=== PATIENT | female | born 1955 | race Caucasian/White ===

== ENCOUNTER → 2017-08-23 | Outpatient (CLI) | payer BC ==
[~2017-08-23] MED LIST: ACET325 PO; ALLO100 PO; ASHWAGANDHA PO; ASPI81CH PO; CHLORELLA PO; CHOL10002 PO; CYAN500 PO; ELIQUIS5 MG PO; KETO10 PO; LOSA50 PO; Milk Thistle150 MG PO; NEBI5 PO; PANT20 PO; PRED1 PO; PROBIOTIC1 EAC1 PO; Pravachol40 MG PO; TOCO1000 PO; TURMERIC500 M2 PO; UBID100 PO; Xopenex Hfa15 GM INH
== END | disposition home or self-care (01) ==
LOC: PLD → LAB SHORT
DX: D22.62 Melanocytic nevi of left upper limb, including shoulder (principal)
CPT/HCPCS: 88305

== ENCOUNTER 2018-05-23 19:42 | Emergency (ER) | payer BC ==
[~2018-05-23] VITALS: Ht 170.2 cm; Wt 140.6 kg
[~2018-05-23 19:42] MED LIST changes: -ACET325 PO; -ASHWAGANDHA PO; -CHLORELLA PO; -CHOL10002 PO; -CYAN500 PO; -ELIQUIS5 MG PO; -KETO10 PO; -Milk Thistle150 MG PO; -PANT20 PO; -PROBIOTIC1 EAC1 PO; -TOCO1000 PO; -TURMERIC500 M2 PO; -UBID100 PO; -Xopenex Hfa15 GM INH
[2018-05-23 20:05] LABS: BASOPHILS ABSOLUTE AUTO 0.04 K/mm3 (0.00-0.23); BASOPHILS PERCENT AUTO 1 % (0-2); EOSINOPHILS ABSOLUTE AUTO 0.03 K/mm3 (0.00-0.68); EOSINOPHILS PERCENT AUTO 0 % (0-6); Hematocrit 40.7 % (33.0-51.0); Hemoglobin 13.5 g/dL (11.5-16.0); IMMATURE GRAN ABSOLUTE AUTO 0.01 K/mm3 (0.00-0.10); IMMATURE GRAN PERCENT AUTO 0 % (0-1); LYMPHOCYTES ABSOLUTE AUTO 1.07 K/mm3 (0.84-5.20); LYMPHOCYTES PERCENT AUTO 14 % (21-46); MONOCYTES ABSOLUTE AUTO 0.61 K/mm3 (0.16-1.47); MONOCYTES PERCENT AUTO 8 % (4-13); Mean Corpuscular HGB 32.9 pg (26.0-34.0); Mean Corpuscular HGB Conc 33.2 g/dL (31.5-36.5); Mean Corpuscular Volume 99 fL (80-100); Mean Platelet Volume 10.1 fL (9.1-12.4); NEUTROPHILS ABSOLUTE AUTO 5.72 K/mm3 (1.96-9.15); NEUTROPHILS PERCENT AUTO 77 % (41-73); Platelet Count 162 K/mm3 (150-400); RDW Coefficient Variation 13.3 % (11.7-14.2); RDW Standard Deviation 48.1 fL (35.1-46.3); White Blood Cell Count 7.48 K/mm3 (4.00-11.30)
[2018-05-23 20:27] LABS: Alanine Aminotransfer (ALT/SGP 31 U/L (12-78); Albumin/Globulin Ratio 1.1 (0.8-1.8); Alk Phos 105 U/L (50-136); Anion Gap 11 mmol/L (6-16); Aspartate Aminotrans (AST/SGOT 26 U/L (12-37); Bilirubin, Total 0.6 mg/dL (0.1-1.0); Blood Urea Nitrogen 10 mg/dL (8-24); Bun/Creatinine Ratio 13.3 (12.0-20.0); CO2, Blood 24 mmol/L (21-32); Calcium, Blood 9.3 mg/dL (8.5-10.1); Chloride, Blood 104 mmol/L (98-108); Creatinine, Blood 0.75 mg/dL (0.40-1.00); Globulin, Blood 3.6 g/dL (2.2-4.0); Glomerular Filtration Rate >60 (60-); Glucose, Blood 107 mg/dL (70-99); Potassium, Blood 4.1 mmol/L (3.5-5.5); Sodium, Blood 139 mmol/L (136-145); Total Protein, Blood 7.6 g/dL (6.4-8.2); Troponin I <0.015 ng/mL (0.000-0.040)
[2018-05-24] MEDS ORDERED: KETO10 PO (00:47)
[2018-05-24] MEDS ORDERED: Milk Thistle150 MG PO (13:57)
[2018-05-24] MEDS ORDERED: UBID100 PO (14:26)
[2018-05-24] MEDS ORDERED: TURMERIC500 M2 PO (14:27)
[2018-05-24] MEDS ORDERED: TOCO1000 PO (14:28)
[2018-05-24] MEDS ORDERED: PROBIOTIC1 EAC1 PO (14:29)
[2018-05-24] MEDS ORDERED: ASHWAGANDHA PO (14:30)
[2018-05-24] MEDS ORDERED: CHLORELLA PO (14:31)
[2018-05-24] MEDS ORDERED: CYAN500 PO (14:32)
[2018-05-24] MEDS ORDERED: CHOL10002 PO (14:33)
[2018-05-25] MEDS ORDERED: PANT20 PO (15:37)
[2018-05-25] MEDS ORDERED: ACET325 PO (15:37)
[2018-05-25] MEDS ORDERED: ELIQUIS5 MG PO (15:51)
== END 2018-05-24 01:18 | disposition home or self-care (01) ==
LOC: ER 19:42
PROVIDERS: Emergency Medicine
DX: R07.2 Precordial pain (principal); R10.13 Epigastric pain; I48.91 Unspecified atrial fibrillation; Z87.891 Personal history of nicotine dependence; Z88.0 Allergy status to penicillin; Z79.899 Other long term (current) drug therapy; Z79.82 Long term (current) use of aspirin
CPT/HCPCS: 36415; 71046; 71260; 80053; 84484; 85025; 85379; 93005; 93010; 96374; 99284-25; J1885; Q9967

== ENCOUNTER 2019-02-24 05:08 | Inpatient (IN) | payer BC ==
[~2019-02-24] VITALS: Ht 172.7 cm; Wt 139.1 kg
[~2019-02-24 05:08] MED LIST changes: +ACET325 PO; +ASHWAGANDHA PO; +CHLORELLA PO; +CHOL10002 PO; +CYAN500 PO; +ELIQUIS5 MG PO; +KETO10 PO; +Milk Thistle150 MG PO; +PANT20 PO; +PROBIOTIC1 EAC1 PO; +TOCO1000 PO; +TURMERIC500 M2 PO; +UBID100 PO; +Xopenex Hfa15 GM INH
[2019-02-24 05:41] LABS: BASOPHILS ABSOLUTE AUTO 0.07 K/mm3 (0.00-0.23); BASOPHILS PERCENT AUTO 1 % (0-2); EOSINOPHILS ABSOLUTE AUTO 0.08 K/mm3 (0.00-0.68); EOSINOPHILS PERCENT AUTO 1 % (0-6); Hematocrit 48.4 % (33.0-51.0); Hemoglobin 15.8 g/dL (11.5-16.0); IMMATURE GRAN ABSOLUTE AUTO 0.04 K/mm3 (0.00-0.10); IMMATURE GRAN PERCENT AUTO 0 % (0-1); LYMPHOCYTES ABSOLUTE AUTO 1.99 K/mm3 (0.84-5.20); LYMPHOCYTES PERCENT AUTO 17 % (21-46); MONOCYTES ABSOLUTE AUTO 0.87 K/mm3 (0.16-1.47); MONOCYTES PERCENT AUTO 8 % (4-13); Mean Corpuscular HGB 31.6 pg (26.0-34.0); Mean Corpuscular HGB Conc 32.6 g/dL (31.5-36.5); Mean Corpuscular Volume 97 fL (80-100); Mean Platelet Volume 10.2 fL (9.1-12.4); NEUTROPHILS ABSOLUTE AUTO 8.41 K/mm3 (1.96-9.15); NEUTROPHILS PERCENT AUTO 73 % (41-73); Platelet Count 241 K/mm3 (150-400); RDW Coefficient Variation 14.3 % (11.7-14.2); White Blood Cell Count 11.46 K/mm3 (4.00-11.30)
[2019-02-24 06:06] LABS: Alanine Aminotransfer (ALT/SGP 24 U/L (12-78); Alk Phos 91 U/L (50-136); Anion Gap 11 mmol/L (6-16); Aspartate Aminotrans (AST/SGOT 29 U/L (12-37); Bilirubin, Total 0.4 mg/dL (0.1-1.0); Blood Urea Nitrogen 13 mg/dL (8-24); Bun/Creatinine Ratio 17.3 (12.0-20.0); CO2, Blood 25 mmol/L (21-32); Calcium, Blood 9.6 mg/dL (8.5-10.1); Chloride, Blood 104 mmol/L (98-108); Creatinine, Blood 0.75 mg/dL (0.40-1.00); Globulin, Blood 3.9 g/dL (2.2-4.0); Glomerular Filtration Rate >60 (60-); Glucose, Blood 124 mg/dL (70-99); Potassium, Blood 4.4 mmol/L (3.5-5.5); Sodium, Blood 140 mmol/L (136-145); Total Protein, Blood 7.9 g/dL (6.4-8.2)
[2019-02-24 08:14] LABS: International Normalized Ratio 0.99; Prothrombin Time Results 10.5 Sec (9.7-11.5)
[2019-02-24] MEDS ORDERED: DIGOX125 MCG PO (08:48)
[2019-02-24] MEDS ORDERED: Hydrocodone-Ap1 EA23 PO (08:50)
[2019-02-24] MEDS ORDERED: PRED1 PO (12:39)
[2019-02-24] MEDS ORDERED: MITIGARE0.6 MG PO (12:40)
--- NOTE | 2019-02-24 15:00 | NUR ---
PT TO DAY SURGERY VIA [facility]
--- NOTE | 2019-02-24 15:32 | NUR ---
PT INTO [facility] VIA Niko NikoLOLITA. History, Chart, Medications and Allergies reviewed before start of procedure.Patient confirms NPO status and agrees with scheduled surgery. Surgical site prepped with 2% Chlorhexidine cloth wipe. VERIFIED WITH DR. CRICKET MARROQUIN WITH SINGLE 20 G PIV FOR SURGERY
--- NOTE | 2019-02-24 19:59 | NUR ---
SHIFT SUMMARY PT HAD HERNIA REPAIR TODAY. ARRIVED POST OP BACK TO ROOM AT 1745. MIDLINE ABD INC WNL., GAUZE W/ OPSITE CDI. C/O ABD PAIN, SORE THROAT, AND NOT FEELING WELL. HAS BEEN ANXIOUS R/T MEDICATIONS AND PLAN OF CARE SINCE ARRIVAL TO UNIT EARLY AFTERNOON. DOES CALM WITH REASSURANCE.
[2019-02-25 04:41] LABS: BASOPHILS ABSOLUTE AUTO 0.02 K/mm3 (0.00-0.23); BASOPHILS PERCENT AUTO 0 % (0-2); EOSINOPHILS ABSOLUTE AUTO 0.01 K/mm3 (0.00-0.68); EOSINOPHILS PERCENT AUTO 0 % (0-6); Hematocrit 44.5 % (33.0-51.0); Hemoglobin 14.3 g/dL (11.5-16.0); IMMATURE GRAN ABSOLUTE AUTO 0.02 K/mm3 (0.00-0.10); IMMATURE GRAN PERCENT AUTO 0 % (0-1); LYMPHOCYTES ABSOLUTE AUTO 1.09 K/mm3 (0.84-5.20); LYMPHOCYTES PERCENT AUTO 13 % (21-46); MONOCYTES ABSOLUTE AUTO 0.69 K/mm3 (0.16-1.47); MONOCYTES PERCENT AUTO 8 % (4-13); Mean Corpuscular HGB 31.6 pg (26.0-34.0); Mean Corpuscular HGB Conc 32.1 g/dL (31.5-36.5); Mean Corpuscular Volume 99 fL (80-100); Mean Platelet Volume 9.9 fL (9.1-12.4); NEUTROPHILS ABSOLUTE AUTO 6.79 K/mm3 (1.96-9.15); NEUTROPHILS PERCENT AUTO 79 % (41-73); Platelet Count 204 K/mm3 (150-400); RDW Coefficient Variation 14.4 % (11.7-14.2); RDW Standard Deviation 52.6 fL (35.1-46.3); Red Blood Cell Count 4.52 M/mm3 (3.80-5.20); White Blood Cell Count 8.62 K/mm3 (4.00-11.30)
[2019-02-25 04:58] LABS: Anion Gap 4 mmol/L (6-16); Blood Urea Nitrogen 9 mg/dL (8-24); Bun/Creatinine Ratio 11.2 (12.0-20.0); CO2, Blood 32 mmol/L (21-32); Calcium, Blood 8.8 mg/dL (8.5-10.1); Chloride, Blood 107 mmol/L (98-108); Glomerular Filtration Rate >60 (60-); Glucose, Blood 107 mg/dL (70-99); Potassium, Blood 4.1 mmol/L (3.5-5.5); Sodium, Blood 143 mmol/L (136-145)
--- NOTE | 2019-02-25 06:18 | NUR ---
SUMMARY POD #1 PT IS TOLERATING PO INTAKE, VOIDING WNL. PAIN MANAGED PRN PER EMAR WITH 1 NORCO AND 25 MCG IV FENT X2. DRSG REMAINS C/D/I. PT IS A 1 ASSIST TO THE BATHROOM, CALS PRN. CALL LIGHT IN REACH
--- NOTE | 2019-02-25 13:30 | NUR ---
THIS RN RECIEVED REPORT AND IS ASSUMING CARE OF PT AT THIS TIME.
--- NOTE | 2019-02-25 15:20 | NUR ---
REPORT GIVEN TO OTHER IZZY Scherer WHO IS TAKING OVER CARE AT THIS TIME.
--- NOTE | 2019-02-25 15:30 | NUR ---
ASSUMED CARE PT RESTING IN BED, DENIES NEEDS. PAIN AT A TOLERABLE LEVEL. REPORTS PASSING GAS. NO BM. ABD SOFT. SURG INC WNL.
--- NOTE | 2019-02-26 07:40 | NUR ---
SUMMARY: POD 2 TRANSVERSE SMALL BOWEL RESECTION BY DR. WILKS. VSS, AFEBRILE, ROOM AIR. TOLERATING REG DIET, PASSING FLATUS, NO BM YET. PT APPEARS ANXIOUS SURROUNDING MEDICATIONS, AND CARE BUT IS EASILY CALMED WITH CARE PLANNING AND REASSURANCE. SBA FOR BRP AND VOIDING WELL. ENCOURAGE AMBULATION IN HALLWAYS AND UP TO CHAIR FOR MEALS THIS DAY.
--- NOTE | 2019-02-26 16:08 | NUR ---
SHIFT SUMMARY PT HAS DONE VERY WELL TODAY. PAIN WELL MANAGED. PASSING GAS. TOLERATING DIET. AMBULATED IN HALLWAYS x 2.
--- NOTE | 2019-02-27 06:34 | NUR ---
SHIFT SUMMARY PT HAS DONE WELL TONIGHT. PAIN WELL MANAGED, PASSING FLATUS, HAD BM, TOLERATING DIET WELL. DENIES PAIN, DISCOMFORT, OR FURTHER NEEDS AT THIS TIME. SAFETY MEASURES IN PLACE. WILL CONTINUE TO [place].
--- NOTE | 2019-02-27 08:28 | NUR ---
DR RAI HERE TO SEE PT.
[2019-02-27] MEDS ORDERED: HYDR1TAB94 PO (11:24)
[2019-02-27] MEDS ORDERED: MIRALAX17 GM PO (11:25)
--- NOTE | 2019-02-27 15:14 | NUR ---
DISCHARGE: PT TOLERATING DIET. PT REPORTS HAVING BM TODAY. PT VOIDING. PAIN TOLERABLE ON PO PAIN MEDICATION. PT REPORTS UP IND. PT FRIEND HERE THAT WILL BE HELPING WITH PT PRN AND GIVING PT RIDE HOME. PT/FRIEND REPORTS UNDERSTANDING OF DISCHARGE INSTRUCTIONS. PT IV OUT EARLIER TODAY. PT SENT WITH SCRIPT AND BELONGINGS.
== END 2019-02-27 15:17 | disposition home or self-care (01) | DRG 354 ==
LOC: ER 05:08 → SURS 08:37
PROVIDERS: Emergency Medicine; Surgery; ADMIT Hospitalist
PROC: 0WUF0JZ Supplement Abdominal Wall with Synthetic Substitute, Open Approach (ICD-10-PCS; principal; 2019-02-24 14:00)
DX: K42.0 Umbilical hernia with obstruction, without gangrene (principal); Z68.41 Body mass index [BMI] 40.0-44.9, adult; I42.9 Cardiomyopathy, unspecified; E27.40 Unspecified adrenocortical insufficiency; E66.01 Morbid (severe) obesity due to excess calories; G47.33 Obstructive sleep apnea (adult) (pediatric); M19.90 Unspecified osteoarthritis, unspecified site; I48.0 Paroxysmal atrial fibrillation; M10.9 Gout, unspecified; Z88.0 Allergy status to penicillin; Z79.899 Other long term (current) drug therapy; Z87.891 Personal history of nicotine dependence
CPT/HCPCS: 36415; 74176; 80048; 80053; 82947; 83690; 85025; 85610; 85730; 93005; 93010; 94762; 96361; 96374; 96375; 96376; 97116; 97161; 97530; 99285-25; A9270-GY; C1781; J0690; J1170; J1720; J2250; J2405; J2704; J2710; J3010; J3486; J7030; J7120; J7512; Q0163

== ENCOUNTER 2020-08-03 14:22 | Emergency (ER) | payer MEDICARE, OTHER ==
[~2020-08-03] VITALS: Ht 170.2 cm; Wt 118.4 kg
[~2020-08-03 14:22] MED LIST changes: +DIGOX125 MCG PO; +HYDR1TAB94 PO; +Hydrocodone-Ap1 EA23 PO; +MIRALAX17 GM PO; +MITIGARE0.6 MG PO
[2020-08-03] MEDS ORDERED: LANOXIN125 MCG PO (14:28)
[2020-08-03] MEDS ORDERED: VITAMIN B122500 MC1 PO (14:28)
[2020-08-03] MEDS ORDERED: ELDERBERRY (14:30)
[2020-08-03] MEDS ORDERED: AMOX500 PO (16:03)
== END 2020-08-03 16:18 | disposition home or self-care (01) ==
LOC: ER 14:22
DX: R04.0 Epistaxis (principal); I48.91 Unspecified atrial fibrillation; Z79.01 Long term (current) use of anticoagulants; Z79.899 Other long term (current) drug therapy; Z87.891 Personal history of nicotine dependence; Z79.52 Long term (current) use of systemic steroids
CPT/HCPCS: 30903; 99283-25; A9270

== ENCOUNTER 2020-08-06 16:43 | Emergency (ER) | payer MEDICARE, OTHER ==
[~2020-08-06] VITALS: Ht 170.2 cm; Wt 115.7 kg
[~2020-08-06 16:43] MED LIST changes: +AMOX500 PO; +ELDERBERRY; +LANOXIN125 MCG PO; +VITAMIN B122500 MC1 PO
== END 2020-08-06 19:23 | disposition home or self-care (01) ==
LOC: ER 16:43
DX: Z48.00 Encounter for change or removal of nonsurgical wound dressing (principal); I48.91 Unspecified atrial fibrillation; Z88.0 Allergy status to penicillin; Z79.01 Long term (current) use of anticoagulants; Z87.891 Personal history of nicotine dependence; Z79.899 Other long term (current) drug therapy
CPT/HCPCS: 99282

== ENCOUNTER → 2020-11-15 | Outpatient (CLI) | payer MEDICARE, OTHER | LOC: LAB SHORT 08:47 → LAB 08:47 | DX: D48.5 Neoplasm of uncertain behavior of skin (principal); L57.0 Actinic keratosis | CPT/HCPCS: 88305 ==

== ENCOUNTER 2021-12-16 12:54 | Day surgery (SDC) | payer MEDICARE ==
[~2021-12-16] VITALS: Ht 170.2 cm; Wt 112.3 kg
== END 2021-12-16 15:58 | disposition home or self-care (01) ==
LOC: ORSCSDS 12:54
PROVIDERS: Internal Medicine Gastroenterology
PROC: 0DJ08ZZ Inspection of Upper Intestinal Tract, Via Natural or Artificial Opening Endoscopic (ICD-10-PCS; principal; 2021-12-16 14:00)
PROC: 0DBK8ZX Excision of Ascending Colon, Via Natural or Artificial Opening Endoscopic, Diagnostic (ICD-10-PCS; principal; 2021-12-16 14:00)
DX: K21.9 Gastro-esophageal reflux disease without esophagitis (principal); Z12.11 Encounter for screening for malignant neoplasm of colon; Z86.010 Personal history of colon polyps; D12.2 Benign neoplasm of ascending colon; K57.30 Diverticulosis of large intestine without perforation or abscess without bleeding; I10 Essential (primary) hypertension; I48.91 Unspecified atrial fibrillation; J44.9 Chronic obstructive pulmonary disease, unspecified; Z87.891 Personal history of nicotine dependence; G47.33 Obstructive sleep apnea (adult) (pediatric); K75.81 Nonalcoholic steatohepatitis (NASH); K74.60 Unspecified cirrhosis of liver; Z79.899 Other long term (current) drug therapy; E66.9 Obesity, unspecified; Z68.39 Body mass index [BMI] 39.0-39.9, adult; Z85.42 Personal history of malignant neoplasm of other parts of uterus
CPT/HCPCS: 88305; J0461; J2405; J2704; J7120

== ENCOUNTER → 2022-05-22 | Outpatient (CLI) | payer MEDICARE ==
[2022-05-22 20:09] LABS: Albumin, Blood 3.7 g/dL (3.4-5.0); Albumin/Globulin Ratio 1.1 (0.8-1.8); Bilirubin, Total 0.4 mg/dL (0.1-1.0); Bun/Creatinine Ratio 22.4 (12.0-20.0); Calcium, Blood 9.2 mg/dL (8.5-10.1); Creatinine, Blood 0.71 mg/dL (0.40-1.00); Globulin, Blood 3.4 g/dL (2.2-4.0); Potassium, Blood 4.1 mmol/L (3.5-5.5); Total Protein, Blood 7.1 g/dL (6.4-8.2)
== END | disposition home or self-care (01) ==
LOC: LAB SHORT 18:41 → LAB 18:41
PROVIDERS: Internal Medicine
DX: I48.91 Unspecified atrial fibrillation (principal); I10 Essential (primary) hypertension; I42.0 Dilated cardiomyopathy
CPT/HCPCS: 80053; 83880; 85651

== ENCOUNTER 2025-07-03 14:10 | Day surgery (SDC) | payer MEDICARE ==
[~2025-07-03] VITALS: Ht 170.2 cm; Wt 115.6 kg
[~2025-07-03 14:10] MED LIST changes: +ALEVAZOL56.7 G1 TOP; +AZELAIC ACID50 GM TOP; +Estrace Vagin42.5 GM VAG; +HAIR, SKIN AND1 EAC3 PO; +MAGNESIUM; +MULTI-VITAMIN1 EAC2 PO; +TART CHERRY400 MG PO
[2025-07-03] MEDS ORDERED: [UNRECOGNIZED DRUG - OTHER] PO (14:40)
--- NOTE | 2025-07-03 15:42 | NUR ---
07/03/25 [address] DAVE, SEE ANESTHESIA RECORDS.
[2025-07-03 16:20] VITALS: BP 98/71
[2025-07-03 16:30] VITALS: BP 118/90
[2025-07-03 16:44] VITALS: BP 128/100
--- NOTE | 2025-07-03 16:57 | NUR ---
DISCHARGE NOTE PT A&OX4, BREATHING RA, VSS, TOLERATING PO FLUIDS. Patient up to Ambulate independently. Gait steady. Discharge instructions reviewed with patient. Patient verbalizes understanding. Copy given to patient to take home. ABDOMEN SOFT AND NON TENDER. Discharged via wheelchair to private car for ride home.
== END 2025-07-03 17:00 | disposition home or self-care (01) ==
LOC: ORSCMMR 14:10 → ORSCSDS 15:00 → ORSCMMR 15:30 → ORD 15:30 → ORSCMMR 17:00
PROVIDERS: Internal Medicine Gastroenterology
PROC: 0DJ08ZZ Inspection of Upper Intestinal Tract, Via Natural or Artificial Opening Endoscopic (ICD-10-PCS; principal; 2025-07-03 15:30)
PROC: 0DJD8ZZ Inspection of Lower Intestinal Tract, Via Natural or Artificial Opening Endoscopic (ICD-10-PCS; principal; 2025-07-03 15:30)
DX: Z13.810 Encounter for screening for upper gastrointestinal disorder (principal); K57.30 Diverticulosis of large intestine without perforation or abscess without bleeding; Z86.0101 Personal history of adenomatous and serrated colon polyps; K75.81 Nonalcoholic steatohepatitis (NASH); I10 Essential (primary) hypertension; I48.91 Unspecified atrial fibrillation; G47.33 Obstructive sleep apnea (adult) (pediatric); K74.60 Unspecified cirrhosis of liver; I50.9 Heart failure, unspecified; K21.9 Gastro-esophageal reflux disease without esophagitis; E66.9 Obesity, unspecified; Z68.41 Body mass index [BMI] 40.0-44.9, adult; Z79.899 Other long term (current) drug therapy; Z87.891 Personal history of nicotine dependence
CPT/HCPCS: J2704; J7120